=== PATIENT | female | born 1950 | race African-American/Black ===

== ENCOUNTER 2022-04-07 15:45 | Emergency (ER) | payer OTHER ==
[~2022-04-07] VITALS: Ht 167.6 cm; Wt 81.6 kg
[2022-04-07 15:53] VITALS: BP_SYST 130
--- NOTE | 2022-04-07 15:57 | NUR ---
Pt placed in front of ED on chair awaiting evaluation. Pt reports COVID(+). Pt sent by PMD for further evaluation.
--- NOTE | 2022-04-07 15:59 | NUR ---
Covid swab collected
--- NOTE | 2022-04-07 16:00 | NUR ---
ER at bedside examining patient.
--- NOTE | 2022-04-07 16:05 | NUR ---
Pt sent by PMD for further after + COVID test and c/o SOB. Pt AAOx4, no acute resp distress noted. Pt afebrile. VSS.
[2022-04-07] MEDS ORDERED: NIRM1TAB PO (17:49)
[2022-04-07 18:00] VITALS: BP_SYST 128
--- NOTE | 2022-04-07 18:00 | NUR ---
Patient given written and verbal discharge instructions and verbalizes understanding. ER MD discussed with patient the results and treatment provided. Patient in stable condition. ID arm band removed. Rx of plaxlovid given. Patient educated on pain management and to follow up with PMD. Pain Scale 3. Opportunity for questions provided and answered. Medication side effect fact sheet provided.
== END 2022-04-07 18:00 | disposition home or self-care (01) ==
LOC: SED 15:45
DX: U07.1 COVID-19 (principal); R06.02 Shortness of breath; M79.10 Myalgia, unspecified site; I10 Essential (primary) hypertension; Z79.899 Other long term (current) drug therapy
CPT/HCPCS: 36415; 71045; 99284